=== PATIENT | female | born 1955 | race African-American/Black ===

== ENCOUNTER 2022-02-21 11:16 | Observation (INO) | payer OTHER ==
[~2022-02-21] VITALS: Ht 162.6 cm; Wt 69.9 kg
--- NOTE | 2022-02-21 11:23 | NUR ---
Patient BIBA to bed 9.
[2022-02-21 11:29] VITALS: BP 128/80
[2022-02-21] MEDS ORDERED: NACL 0.9% 1,000 ML IV ONE (11:55)
--- NOTE | 2022-02-21 12:09 | NUR ---
RAD AT BEDSIDE
--- NOTE | 2022-02-21 12:15 | NUR ---
PT BIB ALS RUN C/O WITNESSED SYNCOPAL EPISODE. NSR ON MONITOR. IV INFUSING NS PER ORDERS. NAD. SAFETY MAINTAINED.
[2022-02-21 12:23] LABS: BASOPHILS % (AUTO) 0.4 % (0.0-2.0); EOSINOPHILS # (AUTO) 0.1 K/uL (0-0.4); EOSINOPHILS % (AUTO) 1.1 % (0.0-4.0); HEMATOCRIT 36.4 % (36-48); HEMOGLOBIN 11.5 g/dL (12.0-16.0); LYMPHOCYTES % (AUTO) 13.6 % (20.5-51.1); MEAN CORPUSCULAR HEMOGLOBIN 27 pg (27-31); MEAN CORPUSCULAR HGB CONC 32 g/dL (33-37); MEAN CORPUSCULAR VOLUME 86.2 fL (80-94); MONOCYTES # (AUTO) 0.6 K/uL (0.8-1.0); MONOCYTES % (AUTO) 7.4 % (1.7-9.3); NEUTROPHILS # (AUTO) 5.9 K/uL (1.8-7.7); NEUTROPHILS % (AUTO) 77.5 % (42.2-75.2); PLATELET COUNT (AUTO) 325 K/uL (140-450); RED BLOOD CELL COUNT(AUTO) 4.23 MIL/uL (4.20-5.40); RED CELL DISTRIBUTION WIDTH 15.9 % (11.6-13.7); WHITE BLOOD COUNT (AUTO) 7.6 K/uL (4.8-10.8)
[2022-02-21 13:24] LABS: ANION GAP 7.4 (8-16); ASPARTATE AMINOTRANSFERASE 5 U/L (15-37); CARBON DIOXIDE 27.3 mmol/L (21-32); CHLORIDE 108 mmol/L (98-107); POTASSIUM 3.7 mmol/L (3.5-5.1); SODIUM SERUM 139 mmol/L (136-145); TOTAL BILIRUBIN 0.4 mg/dL (0.0-1.0)
[2022-02-21 13:28] LABS: GFR ARICAN-AMERICAN 72 mL/min (>90); GLUCOSE 126 mg/dL (74-106); UREA NITROGEN, BLOOD 14 mg/dL (7-18)
[2022-02-21 17:09] LABS: APPEARANCE,URINE CLEAR (CLEAR); BILIRUBIN,URINE NEGATIVE (NEGATIVE); BLOOD, URINE NEGATIVE (NEGATIVE); COLOR,URINE YELLOW (YELLOW); LEUKOCYTE ESTERASE ,URINE 3+ (NEGATIVE); NITRITE, URINE NEGATIVE (NEGATIVE); UGLUCOSE NEGATIVE (NEGATIVE)
--- NOTE | 2022-02-21 17:50 | NUR ---
swabbed and walked to lab
[2022-02-21] MEDS ORDERED: ACETAMINOPHEN 325 MG TAB PO ONE (19:35)
[2022-02-21] MEDS ORDERED: ACETAMINOPHEN EXTRA STRENGTH 500 MG TAB ONE (19:38)
[2022-02-21 19:39] LABS: RBC,URINE 0-5 /HPF (0-5)
[2022-02-21] MEDS ORDERED: HYDROcodone/APAP 5/325 MG 1 TAB TAB PO PRN (21:05)
[2022-02-21] MEDS ORDERED: KCL 20 MEQ/WATER INJ PREMIX 200 ML IV PRN (21:05)
[2022-02-21] MEDS ORDERED: POTASSIUM CHLORIDE 10 MEQ TABER PO PRN (21:05)
[2022-02-21] MEDS ORDERED: MAGNESIUM OXIDE 400 MG TAB PO PRN (21:05)
[2022-02-21] MEDS ORDERED: ONDANSETRON 4 MG/2 ML VIAL IVP PRN (21:05)
[2022-02-21] MEDS ORDERED: MORPHINE SULFATE 4 MG/ML SYR IVP PRN (21:05)
[2022-02-21] MEDS ORDERED: MAG SULF 2000 MG/WATER PREMIX 50 ML IV PRN (21:05)
--- NOTE | 2022-02-21 21:46 | NUR ---
Patient will be admitted to care of Simon Kent. Admited to Telemetry. Will go to room 119A. Belongings list completed. Report to Ella JOINER.
[2022-02-21 22:08] VITALS: BP 125/75
--- NOTE | 2022-02-21 22:08 | NUR ---
RECEIVED PT AAOX4 , FROM ER / [facility] , NID - O2 SAT WNL , IV SITE INTACT AND PATENT , AMBULATES TO BED W/ ASSIST , ON TELE MONITOR - SR , NO C/O PAIN AT THIS TIME , ADMISSION ASSESSMENT - DONE . MRSA SPECIMEN TO BE SENT , PLAN OF CARE DISCUSSED AND VERBALIZES UNDERSTANDING , FALL RISK - PUT ON FALL PREVENTION PROTOCOL , CALL LIGHT WITHIN REACH , WILL CONT. TO MONITOR .
--- NOTE | 2022-02-21 22:32 | NUR ---
U/A RESULT WBC 6 - NO ABX GIVEN IN THE ER - PAGED DR. DELANEY ABOUT IT - WILL WAIT THE CALL BACK . Addendum: 02/21/22 at 2255 by Ella Green RN DR. DELANEY CALL BACK - PER HIM HE WILL ASSESS PT DILIP AM BEFORE HE WILL DECIDE PUT PT ON ABX - WILL ENDORSED .
[2022-02-22] VITALS: BP 128/77
[2022-02-22 04:00] VITALS: BP 122/82
--- NOTE | 2022-02-22 04:00 | NUR ---
NO COMPLAIN MADE
[2022-02-22 07:06] LABS: BASOPHILS % (AUTO) 0.4 % (0.0-2.0); EOSINOPHILS # (AUTO) 0.1 K/uL (0-0.4); HEMATOCRIT 38.9 % (36-48); HEMOGLOBIN 12.5 g/dL (12.0-16.0); LYMPHOCYTES # (AUTO) 0.9 K/uL (2.5-16.5); LYMPHOCYTES % (AUTO) 14.3 % (20.5-51.1); MEAN CORPUSCULAR HEMOGLOBIN 28 pg (27-31); MEAN CORPUSCULAR HGB CONC 32 g/dL (33-37); MEAN CORPUSCULAR VOLUME 85.8 fL (80-94); MONOCYTES # (AUTO) 0.3 K/uL (0.8-1.0); MONOCYTES % (AUTO) 4.6 % (1.7-9.3); NEUTROPHILS # (AUTO) 5.2 K/uL (1.8-7.7); NEUTROPHILS % (AUTO) 79.7 % (42.2-75.2); PLATELET COUNT (AUTO) 386 K/uL (140-450); RED BLOOD CELL COUNT(AUTO) 4.53 MIL/uL (4.20-5.40); RED CELL DISTRIBUTION WIDTH 16.1 % (11.6-13.7); WHITE BLOOD COUNT (AUTO) 6.6 K/uL (4.8-10.8)
--- NOTE | 2022-02-22 07:08 | NUR ---
PATIENT HAS BEEN SCREENED AND CATEGORIZED MODERATE NUTRITION RISK. PATIENT WILL BE SEEN WITHIN 3-5 DAYS OF ADMISSION. 02/24/22-02/26/22 ANANDA VARNER MS, RDN
[2022-02-22 07:33] LABS: ALBUMIN 3.4 g/dL (3.4-5.0); CARBON DIOXIDE 26.6 mmol/L (21-32); CREATININE 0.8 mg/dL (0.6-1.3); MAGNESIUM 1.9 mg/dL (1.8-2.4); POTASSIUM 3.6 mmol/L (3.5-5.1); TOTAL BILIRUBIN 0.6 mg/dL (0.0-1.0)
[2022-02-22 08:00] VITALS: BP 131/80
[2022-02-22] MEDS: ENOXAPARIN 40 MG/0.4 ML SYR SUBQ SCH (09:04)
[2022-02-22 12:00] VITALS: BP 127/89
[2022-02-22] MEDS: NACL 0.9% 1,000 ML IV SCH ×3 (13:55→21:55)
[2022-02-22] MEDS ORDERED: ACETAMINOPHEN 325 MG TAB PO PRN (14:05)
[2022-02-22 16:00] VITALS: BP 131/89
--- NOTE | 2022-02-22 19:30 | NUR ---
RECEIVED BEDSIDE REPORT FROM DAY SHIFT RN FOR CONTINUITY OF CARE. PT IS AWAKE ON RA. PT IS AAOX4. PT DENIES ANY PAIN. NO COMPLAINS. PT HAS LEFT AC 20 GAUGE WITH NS 120 ML/HR. PT IS ABLE TO AMBULATE TO THE RESTROOM WITHOUT ASSISTANCE. PLAN OF CARE DISCUSSED. CALL LIGHT WITHIN REACH. ALL SAFETY MEASURES TAKEN. WILL CONTINUE TO MONITOR THE PT
[2022-02-22 20:00] VITALS: BP_SYST 139; BP_SYST 156; BP_DIAS 81; BP_DIAS 85
[2022-02-23] VITALS: BP 139/85
--- NOTE | 2022-02-23 | NUR ---
VS STABLE. AFEBRILE. PT DENIES ANY PAIN. PT HAS NO COMPLAINS AT THIS TIME. IVF RUNNING PER MD ORDER. CALL LIGHT WITHIN REACH. ALL SAFETY MEASURES TAKEN. WILL CONTINUE TO MONITOR THE PT.
--- NOTE | 2022-02-23 01:52 | NUR ---
PT IS SLEEPING COMFORTABLE IN BED. PT SHOWS NO SIGNS OF RESPIRATORY DISTRESS. BREATHING EVEN AND UNLABORED. IVF RUNNING PER MD ORDER. CALL LIGHT WITHIN REACH. ALL SAFETY MEASURES TAKEN. WILL CONTINUE TO MONITOR THE PT.
[2022-02-23 04:00] VITALS: BP 158/89
--- NOTE | 2022-02-23 07:24 | NUR ---
RECEIVED REPORT FROM NIGHTSHIFT NURSE FOR CONTINUITY OF CARE. PLAN OF CARE DISCUSSED, PT CURRENTLY AWAKE AND IN STABLE CONDITION. A/OX4, BREATHING EVEN, REGULAR, AND UNLABORED ON RA. CONTINENT OF THE BOWEL AND BLADDER. AMBULATORY, SKIN INTACT. IVF RUNNING NS AT 125ML/HR. NO SIGNS OF DISTRESS NOTED, PT DENIES PAIN AT THIS TIME.
--- NOTE | 2022-02-23 07:24 | NUR ---
ENDORSED PT TO DAY SHIFT RN FOR CONTINUITY OF CARE. PT IS STABLE.
[2022-02-23 07:57] LABS: BASOPHILS % (AUTO) 0.6 % (0.0-2.0); EOSINOPHILS # (AUTO) 0.2 K/uL (0-0.4); EOSINOPHILS % (AUTO) 4.4 % (0.0-4.0); HEMATOCRIT 38.1 % (36-48); HEMOGLOBIN 12.1 g/dL (12.0-16.0); LYMPHOCYTES # (AUTO) 1.8 K/uL (2.5-16.5); LYMPHOCYTES % (AUTO) 34.9 % (20.5-51.1); MEAN CORPUSCULAR HEMOGLOBIN 27 pg (27-31); MEAN CORPUSCULAR HGB CONC 32 g/dL (33-37); MEAN CORPUSCULAR VOLUME 86.3 fL (80-94); MONOCYTES # (AUTO) 0.4 K/uL (0.8-1.0); MONOCYTES % (AUTO) 8.4 % (1.7-9.3); NEUTROPHILS # (AUTO) 2.7 K/uL (1.8-7.7); NEUTROPHILS % (AUTO) 51.7 % (42.2-75.2); PLATELET COUNT (AUTO) 355 K/uL (140-450); RED BLOOD CELL COUNT(AUTO) 4.41 MIL/uL (4.20-5.40); RED CELL DISTRIBUTION WIDTH 16.4 % (11.6-13.7); WHITE BLOOD COUNT (AUTO) 5.2 K/uL (4.8-10.8)
[2022-02-23 08:00] VITALS: BP 156/86
[2022-02-23 08:55] LABS: ANION GAP 10.6 (8-16); CREATININE 0.7 mg/dL (0.6-1.3); MAGNESIUM 1.8 mg/dL (1.8-2.4); POTASSIUM 4.6 mmol/L (3.5-5.1); TOTAL BILIRUBIN 0.5 mg/dL (0.0-1.0)
--- NOTE | 2022-02-23 09:10 | NUR ---
PT COMPLAINED OF HEADACHE PAIN 5/10 AND REQUESTED PRN TYLENOL. PT MEDICATED WITH PRN TYLENOL AND OFFERED COLD PACKS FOR INCREASED COMFORT.
[2022-02-23] MEDS: ENOXAPARIN 40 MG/0.4 ML SYR SUBQ SCH (09:14)
[2022-02-23] MEDS ORDERED: NITR100C7 PO (09:21)
--- NOTE | 2022-02-23 10:30 | NUR ---
PT VISUALLY ASSESSED. CURRENTLY AWAKE AND DENIES ANY PAIN AT THIS TIME. PT IN STABLE CONDITION.
[2022-02-23 11:46] VITALS: BP 151/98
--- NOTE | 2022-02-23 12:59 | NUR ---
DISCUSSED AND REVIEWED PT DISCHARGE INSTRUCTIONS WITH PT. PT WAS ABLE TO VERBALIZE UNDERSTANDING AND SIGNED ALL PAPERWORK. PT IN STABLE CONDITION AND TRANSPORTED HOME VIA POV.
== END 2022-02-23 12:55 | disposition home or self-care (01) ==
LOC: MED 11:16 → MTU 21:09
PROVIDERS: ADMIT Internal Medicine; ATTEND Internal Medicine
DX: R55 Syncope and collapse (principal); Z20.822 Contact with and (suspected) exposure to COVID-19; I10 Essential (primary) hypertension; N39.0 Urinary tract infection, site not specified; I45.81 Long QT syndrome; Z79.899 Other long term (current) drug therapy
CPT/HCPCS: 36415; 70450; 71045; 71275; 80053; 81001; 83735; 84484; 85025; 85379; 87081; 87086; 87426; 93005; 96361; 96365; 96366; 96372; 99285; G0378; J1650; Q0092; Q9967; J0696; J7060